=== PATIENT | male | born 1980 | race Caucasian/White ===

== ENCOUNTER 2018-01-18 11:48 | Observation (INO) | payer OTHER ==
[2018-01-18 12:40] VITALS: BMI 22.7
--- NOTE | 2018-01-18 12:57 | PDOC ---
Attending Attestation - Resident Resident Name: Lucius Holliday - ED Attending Attestation I have performed the following: I have examined & evaluated the patient, The case was reviewed & discussed with the resident, I agree w/resident's findings & plan, Exceptions are as noted - HPI HPI: 01/18/18 14:39 THis is a 37 yo RHD M who presents to the ER after attempting to catch a falling box of knives causing a laceration to his right middle finger. The laceration crosses the middle phalanx over the PIP joint. (+) pain (+) limited range of motion - Physicial Exam PE: 01/18/18 12:57 GENERAL: The patient is in no acute distress. LUNGS: Breath sounds equal, clear to auscultation bilaterally. No wheezes, and no crackles. HEART:Regular rate and rhythm, normal S1 and S2 without murmur, rub or gallop. ABDOMEN: Soft, nontender EXTREMITIES: Normal range of motion, no edema. No clubbing or cyanosis. No erythema, or tenderness. NEUROLOGICAL: Cranial nerves II through XII grossly intact. Normal speech. No focal neurological deficits. MUSCULOSKELETAL: Back non-tender to palpation, no CVA tenderness SKIN: laceration right 01/18/18 14:40 - Medical Decision Making 01/18/18 14:50 Patient seen in emergency department by hand consultants Dr. Hanks. Patient be taken to the operating room. Flexor tendon injury
--- NOTE | 2018-01-18 13:47 | PDOC ---
History of Present Illness - General Chief Complaint: Injury Stated Complaint: INJURY TO FINGER (WORK RELATED) Time Seen by Provider: 01/18/18 12:53 History Source: Patient Exam Limitations: No Limitations - History of Present Illness Initial Comments: 01/18/18 14:09 37m with pmh of Brugada syndrome with pacemaker, presents to the ED after attempting to break the fall of a box of knives causing a laceration to his right middle finger. The laceration crosses the middle phalanx over the PIP joint. Says that there was a lot of blood squirting from the wound before he applied pressure. Patient was seen in This ED previously under the name Ignacio Cortés, [id number] 01/18/18 15:34 Past History - Past Medical History Allergies/Adverse Reactions: Allergies Allergy/AdvReac Type Severity Reaction Status Date / Time No Known Allergies Allergy Verified 01/18/18 14:25 COPD: No - Immunization History Immunization Up to Date: No - Suicide/Smoking/Psychosocial Hx Smoking History: Current every day smoker Number of Cigarettes Smoked Daily: 4 Information on smoking cessation initiated: No Hx Alcohol Use: No Drug/Substance Use Hx: No Review of Systems - Review of Systems Able to Perform ROS?: Yes Is the patient limited Stateless proficient: No Constitutional: No: Symptoms Reported HEENTM: No: Symptoms Reported Respiratory: No: Symptoms reported Cardiac (ROS): No: Symptoms Reported ABD/GI: No: Symptoms Reported : No: Symptoms Reported Musculoskeletal: No: Symptoms Reported Integumentary: Yes: Other (3cm laceration to right 3rd finger ) Neurological: Yes: Other (Paatient unable to flex the DIP and PIP joint, just the MCP. Decreased sensation. No bleed.) *Physical Exam - Vital Signs Last Vital Signs Temp Pulse Resp BP Pulse Ox 98.2 F 60 18 117/73 100 01/18/18 12:37 01/18/18 12:37 01/18/18 12:37 01/18/18 12:37 01/18/18 12:37 ED Treatment Course - LABORATORY CBC & Chemistry Diagram: 01/18/18 14:30 01/18/18 14:30 - RADIOLOGY Radiology Studies Ordered: Category Date Time Status FINGER(S) RIGHT [RAD] Stat Radiology 01/18/18 12:56 Completed Medical Decision Making - Medical Decision Making 01/18/18 14:[address] Rosas who will operate on the patient. All pre-surgical labs ordered. Consulted with dr. Gonsalez with cardiology 01/18/18 15:36 Spoke with [employer] off premise service representative Juan Manuel Menchaca ([phone]) who advised just using a magnet to turn off the device for the surgery. *DC/Admit/Observation/Transfer Diagnosis at time of Disposition: Laceration of right middle finger - Discharge Dispostion Decision to Admit order: Yes - Referrals - Patient Instructions - Post Discharge Activity
[2018-01-18] MEDS ORDERED: AMPICILLIN NA/SULBACTAM NA 3 GM in SODIUM CHLORIDE 100 ML IVPB ONE (14:20)
[2018-01-18 14:41] LABS: BASO % 0.6 % (0-2.0); EOS % 0.2 % (0-4.5); HEMATOCRIT 41.3 % (35.4-49); HEMOGLOBIN 13.9 GM/dL (11.7-16.9); LYMPH % 14.5 % (8-40); MCH 32.2 pg (25.7-33.7); MCHC 33.5 g/dl (32.0-35.9); MEAN CELL VOLUME 95.9 fl (80-96); MEAN PLT VOLUME 7.1 fl (7.5-11.1); MONO % 3.4 % (3.8-10.2); NEUT % 81.3 % (42.8-82.8); PLATELET COUNT 281 K/MM3 (134-434); RBC 4.31 M/mm3 (4.00-5.60); RDW 13.2 % (11.9-15.9); WHITE BLOOD COUNT 8.3 K/mm3 (4.0-10.0)
[2018-01-18 14:54] LABS: ALBUMIN 3.8 g/dl (3.4-5.0); ANION GAP 9 (8-16); BLOOD UREA NITROGEN 13 mg/dL (7-18); CALCIUM 8.7 mg/dL (8.5-10.1); CHLORIDE 108 mmol/L (98-107); CO2 26 mmol/L (21-32); GLUCOSE,RANDOM 92 mg/dL (74-106); POTASSIUM 4.3 mmol/L (3.5-5.1); SODIUM 143 mmol/L (136-145)
[2018-01-18 14:58] LABS: ALK PHOS 46 U/L (45-117); BILIRUBIN,TOTAL 0.4 mg/dL (0.2-1.0); CREATININE 0.7 mg/dL (0.7-1.3); SGOT/AST 13 U/L (15-37); SGPT/ALT 15 U/L (12-78); TOT PROT 6.7 g/dl (6.4-8.2)
--- NOTE | 2018-01-18 14:59 | CON.CARD ---
Consult Consult Specialty:: Cardiology Referred by:: ER Reason for Consultation:: Preop, h/o icd for inducible VT and and family h/o brugada - History of Present Illness Chief Complaint: admitted with finger laceration History of Present Illness: PLEASE NOTE, This patient has been admitted here and [facility], multiple times as recent as 10/2017 under the name Frankie Cortés. The charts should be merged. 37 year old man with a family history of father who has Brugada syndrome and an ICD, admitted to [facility] 2013 after a syncopal episode that occurred while smoking K2, no brugada was seen on procainamide challenge but EP study showed inducible monomorphic VT thus he underwent an ICD implantation (Medtronic) at that time. He has not followed with a health administration teacher as an outpatient and He has not had his ICD regularly checked, does not know the last time it was checked. He is now here with a finger laceration that occurred at work and will require surgery. He was seen and [facility] in [facility]. He denies any ICD shocks, he denies any other episodes of syncope after the episode in 2013. Occasional brief palpitations. no sob, pnd, orthopnea, or LE edema. - History Source History Provided By: Patient, Medical Record Limitations to Obtaining History: Poor Historian - Past Medical History Cardio/Vascular: Yes: Other (inducible VT s/p ICD, family history brugada) - Past Surgical History Past Surgical History: Yes: AICD - Alcohol/Substance Use Hx Alcohol Use: No - Smoking History Smoking history: Current every day smoker Aproximately how many cigarettes per day: 4 - Social History ADL: Independent History of Recent Travel: No Home Medications - Allergies Allergies/Adverse Reactions: Allergies Allergy/AdvReac Type Severity Reaction Status Date / Time No Known Allergies Allergy Verified 01/18/18 14:25 Family Disease History - Family Disease History Family Disease History: Heart Disease: Father (brugada s/p ICD) Review of Systems - Review of Systems Constitutional: denies: No Symptoms, Chills, Diaphoresis, Fever, Lethargy, Loss of Appetite, Malaise, Night Sweats, Unintentional Wgt. Loss, Weakness, Other Eyes: denies: No Symptoms, Blind Spots, Blurred Vision, Double Vision, Eye Pain , Floaters, Photophobia, Recent Change in Vision, Other HENT: denies: No Symptoms, Difficult Swallowing, Ear Discharge, Ear Pain, Epistaxis, Gingival Bleeding, Hearing Loss, Mouth Swelling, Nasal Congestion, Ocular Prosthesis, Throat Pain, Toothache, Ringing in Ears, Other Neck: denies: No Symptoms, Decreased ROM, Lumps, Pain on Movement, Stiffness, Swollen Glands, Tenderness, Other Cardiovascular: denies: No Symptoms, Chest Pain, Edema, Palpitations, Shortness of Breath, Other Respiratory: denies: No Symptoms, Cough, Exercise Intolerance, Hemoptysis, Orthopnea, PND, Snoring, SOB, SOB on Exertion, Wheezing, Other Gastrointestinal: denies: No Symptoms, Abdominal Pain, Bloating, Constipation, Diarrhea, Dysphagia, Indigestion, Melena, Nausea, Rectal Bleeding, Vomiting, Vomiting Blood, Other Genitourinary: denies: No Symptoms, Burning, Discharge, Dysuria, Flank Pain, Frequency, Hematuria, Incontinence, Lesions, Menses, Pain, Testicular Mass, Testicular Pain, Testicular Swelling, Urgency, Vaginal Bleeding, Other Breasts: denies: No Symptoms Reported, See HPI, Breast Implants, Discharge from Nipple, Lumps, Pain, Skin Changes, Other Musculoskeletal: reports: Extremity Pain, Joint Swelling, Other (finger laceration and pain). denies: No Symptoms, Back Pain, Crepitus, Decreased ROM, Joint Pain, Muscle Pain, Muscle Cramps, Muscle Weakness Integumentary: reports: Wound. denies: No Symptoms, Blister, Bruising, Change in Color, Eczema, Erythema, Incision, Lesions, Lump, Pallor, Pruritis, Rash, Other Neurological: denies: No Symptoms, Change in LOC, Change in Speech, Confusion, Dizziness, Headache, Incoordination, Numbness, Parasthesia, Pre-Existing Deficit , Seizure, Syncope, Tremors, Unsteady Gait, Weakness, Other Endocrine: denies: No Symptoms, Excessive Sweating, Flushing, Increased Hunger, Increased Thirst, Intolerance to Cold, Intolerance to Heat, Unexplained Weight Gain, Unexplained Weight Loss, Other Hematology/Lymphatic: denies: No Symptoms, Easily Bruised, Excessive Bleeding, Swollen Glands, Other Psychiatric: denies: No Symptoms, Altered Sleep Pattern, Anxiety, Depression, Hallucinations, Panic, Paranoia, Suicidal, Other Vital Signs: Vital Signs Temperature 98.2 F 01/18/18 12:37 Pulse Rate 60 01/18/18 12:37 Respiratory Rate 18 01/18/18 12:37 Blood Pressure 117/73 01/18/18 12:37 O2 Sat by Pulse Oximetry (%) 100 01/18/18 12:37 Constitutional: Yes: No Distress, Calm, Thin Eyes: Yes: WNL, Conjunctiva Clear, EOM Intact, PERRL HENT: Yes: WNL, Atraumatic, Normocephalic Neck: Yes: WNL, Supple, Trachea Midline Respiratory: Yes: WNL, Regular, CTA Bilaterally. No: Rales, Rhonchi, Wheezes Gastrointestinal: Yes: WNL, Normal Bowel Sounds, Soft. No: Distention, Tenderness Renal/: Yes: WNL Cardiovascular: Yes: WNL, Regular Rate and Rhythm. No: Bradycardia, Tachycardia , Pulse Irregular, Gallop, Rub, Varicosities JVD: No Carotid Bruit: No PMI: Non-Displaced Heart Sounds: Yes: S1, S2. No: Split S2, S3, S4, Clicks, Gallop, Rub, Bruit Murmur: No: Systolic Murmur, Diastolic Murmur Musculoskeletal: Yes: WNL Extremities: Yes: Other (R hand finger laceration) Edema: No Peripheral Pulses WNL: Yes Peripheral Pulses: 2+ Left Doralis Pedis, 2+ Right Dorsalis Pedis Integumentary: Yes: WNL Neurological: Yes: WNL, Alert, Oriented, Cran Nerves II-XII Intact ...Motor Strength: WNL Psychiatric: Yes: WNL, Alert, Oriented - Other Data Labs, Other Data: CBC, BMP 01/18/18 14:30 01/18/18 14:30 not yet done Prior Cardiac Procedures: Other (ICD for inducible VT [facility] 2013) Ejection Fraction %: LVEF > or = 40 % Imaging - Results EKG: Pending Other: Report Reviewed, Image Reviewed Assessment/Plan PLEASE NOTE, This patient has been admitted here and [facility], multiple times as recent as 10/2017 under the name Frankie Cortés. The charts should be merged. 37 year old man with a family history of father who has Brugada syndrome and an ICD, admitted to [facility] 2013 after a syncopal episode that occurred while smoking K2, no brugada was seen on procainamide challenge but EP study showed inducible monomorphic VT thus he underwent an ICD implantation (Medtronic) at that time. He has not followed with a health administration teacher as an outpatient and He has not had his ICD regularly checked, does not know the last time it was checked. He is now here with a finger laceration that occurred at work and will require surgery. He was seen and examined in [place]. He denies any ICD shocks, he denies any other episodes of syncope after the episode in 2013. Occasional brief palpitations. no sob, pnd, orthopnea, or LE edema. Cardiology preop for finger laceration surgery -there are no cardiac contraindications to surgery -the 2 issues are that use of bovie could potentially cause artifact and misinterpretation by ICD leading to a shock -please have Medtronic available to turn off shock function of ICD prior to procedure and have external defibrillator pads on patient and on standby, then return ICD to normal function post procedure -if pt does have brugada syndrome the stress of anesthesia and surgery although unlikely could stimulate and arrhythmia and thus should have the external pads available, while unlikely it would be even less likely if local/regional anesthesia could be used for the procedure, at the discretion of surgery and anesthesia -otherwise there are no contraindications to the procedure and would recommend routine postoperative monitoring Advised pt that he needs to adhere to outpatient follow up and needs to have his ICD routinely monitored for proper function and battery life. No other inpatient cardiac work up needed at this time.
[2018-01-18 15:13] LABS: INR 1.01 (0.83-1.09); PROTHROMBIN TIME (PATIENT) 11.4 SEC (9.7-13.0)
[2018-01-18 15:15] LABS: ACTIVATED PTT 26.7 SECONDS (25.2-36.5)
--- NOTE | 2018-01-18 15:39 | CONSULT ---
Consult Consult Specialty:: Hand and Microsurgery Referred by:: Mg RUCKER - ED Reason for Consultation:: Lacertion with flexor tendon dominnat hand - History of Present Illness Chief Complaint: Right hand middle finger lacertion History of Present Illness: 37 yo RHD male PMH Brugadda s/p ICD, presented with a knife laceration of the right middle finger sustained at work. He was trying to catch a box of knives that was falling. 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 The laceration crosses the middle phalanx over the PIP joint. He noted pulsatile bleeding at the scene and and he applied pressure with a rubber jarrett tourniquet NPO since 8 this morning. - History Source History Provided By: Patient, Medical Record Limitations to Obtaining History: No Limitations - Past Medical History Cardio/Vascular: Yes: Other (inducible VT s/p ICD, family history brugada) - Past Surgical History Past Surgical History: Yes: AICD - Alcohol/Substance Use Hx Alcohol Use: No - Smoking History Smoking history: Current every day smoker Aproximately how many cigarettes per day: 4 - Social History ADL: Independent History of Recent Travel: No Home Medications - Allergies Allergies/Adverse Reactions: Allergies Allergy/AdvReac Type Severity Reaction Status Date / Time No Known Allergies Allergy Verified 01/18/18 14:25 Family Disease History - Family Disease History Family Disease History: Heart Disease: Father (brugada s/p ICD) Review of Systems - Review of Systems Constitutional: denies: Chills, Fever, Night Sweats Eyes: denies: Blind Spots, Recent Change in Vision HENT: denies: Difficult Swallowing, Throat Pain Neck: denies: Decreased ROM, Tenderness Cardiovascular: reports: Other (bradycardia syndrome) Respiratory: denies: Cough, SOB Gastrointestinal: denies: Abdominal Pain, Constipation, Diarrhea Genitourinary: denies: Discharge, Dysuria Breasts: reports: No Symptoms Reported. denies: Pain Musculoskeletal: reports: Extremity Pain (right hand). denies: Joint Swelling, Muscle Weakness Integumentary: denies: No Symptoms, Blister, Change in Color Neurological: denies: Seizure, Syncope Endocrine: denies: Unexplained Weight Gain, Unexplained Weight Loss Hematology/Lymphatic: denies: Easily Bruised, Excessive Bleeding Psychiatric: denies: Anxiety, Depression Physical Exam Vital Signs: Vital Signs Temperature 98.2 F 01/18/18 12:37 Pulse Rate 60 08/08/18 12:37 Respiratory Rate 18 01/18/18 12:37 Blood Pressure 117/73 01/18/18 12:37 O2 Sat by Pulse Oximetry (%) 100 01/18/18 12:37 Constitutional: Yes: Well Nourished, No Distress, Calm, Thin Eyes: Yes: Conjunctiva Clear, EOM Intact HENT: Yes: Atraumatic, Normocephalic Neck: Yes: Supple, Trachea Midline Cardiovascular: Yes: Regular Rate and Rhythm, S1, S2, Other (left chest prominent buldge subcutaneously) Respiratory: Yes: Regular, CTA Bilaterally Gastrointestinal: Yes: Normal Bowel Sounds, Soft. No: Tenderness ...Rectal Exam: Yes: Deferred Renal/: No: CVA Tenderness - Left, CVA Tenderness - Right Musculoskeletal: No: Back Pain, Joint Stiffness Extremities: No: Cool, Cyanosis Edema: No Peripheral Pulses WNL: Yes Integumentary: Yes: Tattoos. No: Erythema, Jaundice Wound/Incision: Yes: Clean/Dry, Bleeding, Unapproximated (Zone 2 volar laceration of right middle finger 2.5cm oblique, diminished 2PD radial border. cap refill <2 seconds). No: Draining, Reddened Neurological: Yes: Alert, Oriented Psychiatric: Yes: Alert, Oriented Labs: CBC, BMP 01/18/18 14:30 01/18/18 14:30 Imaging - Results X-ray: Report Reviewed, Image Reviewed Problem List - Problems (1) Laceration of flexor structure of right middle finger at hand level Assessment/Plan: 37yo RHD male with Right middle finger laceration sustained at work NPO and IVF hydration IV antibiotics Discussed with patient risks, benefits and alternatives of Exploration right middle finger, repair of flexor tendon, digital nerve and vessel including but not limited to bleeding, infection, injury to adjacent structures, loss of function, amputation, need for further procedures; alternatives include antibiotics, delayed or no surgery - risks of this include failure of nonoperative therapy, loss of function, amputation, recurrence. Patient desires to proceed with operation - will take to OR for above. Informed consent signed for same. Thank you for the opportunity to participate in the care of this patient. Code(s): S66.122A - LACERAT FLEXOR MUSC/FASC/TEND R MID FNGR AT WRS/HND LV, INIT (2) Laceration of right middle finger Code(s): S61.212A - LACERATION W/O FB OF R MID FINGER W/O DAMAGE TO NAIL, INIT Qualifiers: Encounter type: initial encounter Damage to nail status: without damage Foreign body presence: unspecified Qualified Code(s): S61.212A - Laceration without foreign body of right middle finger without damage to nail, initial encounter (3) Laceration of digital nerve of finger Code(s): S64.40XA - INJURY OF DIGITAL NERVE OF UNSPECIFIED FINGER, INIT ENCNTR Qualifiers: Encounter type: initial encounter Qualified Code(s): S64.40XA - Injury of digital nerve of unspecified finger, initial encounter (4) Laceration of digital artery Code(s): S65.519A - LACERATION OF BLOOD VESSEL OF UNSP FINGER, INIT ENCNTR Qualifiers: Encounter type: initial encounter Qualified Code(s): S65.519A - Laceration of blood vessel of unspecified finger, initial encounter
--- NOTE | 2018-01-18 17:21 | HP ---
Admitting History and Physical - Primary Care Physician PCP: Felicity Loya - Admission History of Present Illness: 37 yo RHD male PMH Brugadda s/p ICD, presented with a knife laceration of the right middle finger sustained at work. He was trying to catch a box of knives that was falling. 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 He noted pulsatile bleeding at the scene and and he applied pressure with a rubber jarrett tourniquet NPO since 8 this morning. - Past Medical History Cardiovascular: Yes: Other (inducible VT s/p ICD, family history brugada) - Past Surgical History Past Surgical History: Yes: AICD - Smoking History Smoking history: Current every day smoker Aproximately how many cigarettes per day: 4 - Alcohol/Substance Use Hx Alcohol Use: No - Social History ADL: Independent History of Recent Travel: No Home Medications - Allergies Allergies/Adverse Reactions: Allergies Allergy/AdvReac Type Severity Reaction Status Date / Time No Known Allergies Allergy Verified 01/18/18 14:25 - Home Medications Home Medications: Ambulatory Orders Amoxicillin/Potassium Clav [Augmentin 875-125 Tablet] 1 each PO BID #14 tablet 01/18/18 Family Disease History - Family Disease History Family Disease History: Heart Disease: Father (brugada s/p ICD) Physical Examination Vital Signs: Vital Signs Temperature 98.2 F 01/18/18 12:37 Pulse Rate 60 01/18/18 12:37 Respiratory Rate 18 01/18/18 12:37 Blood Pressure 117/73 01/18/18 12:37 O2 Sat by Pulse Oximetry (%) 100 01/18/18 12:37 Constitutional: Yes: No Distress HENT: Yes: Atraumatic Neck: Yes: Supple Cardiovascular: Yes: Regular Rate and Rhythm Respiratory: Yes: CTA Bilaterally Gastrointestinal: Yes: Normal Bowel Sounds Extremities: Yes: Other (R middle finger laceration) Peripheral Pulses WNL: Yes Neurological: Yes: Alert, Oriented Labs: CBC, BMP 01/18/18 14:30 01/18/18 14:30 Problem List - Problems (1) Laceration of digital artery Code(s): S65.519A - LACERATION OF BLOOD VESSEL OF UNSP FINGER, INIT ENCNTR Qualifiers: Encounter type: initial encounter Qualified Code(s): S65.519A - Laceration of blood vessel of unspecified finger, initial encounter (2) Laceration of digital nerve of finger Code(s): S64.40XA - INJURY OF DIGITAL NERVE OF UNSPECIFIED FINGER, INIT ENCNTR Qualifiers: Encounter type: initial encounter Qualified Code(s): S64.40XA - Injury of digital nerve of unspecified finger, initial encounter (3) Laceration of flexor structure of right middle finger at hand level Code(s): S66.122A - LACERAT FLEXOR MUSC/FASC/TEND R MID FNGR AT WRS/HND LV, INIT (4) Laceration of right middle finger Assessment/Plan: dr nguyen surgeon on board and will take pt to OR Code(s): S61.212A - LACERATION W/O FB OF R MID FINGER W/O DAMAGE TO NAIL, INIT Qualifiers: Encounter type: initial encounter Damage to nail status: without damage Foreign body presence: unspecified Qualified Code(s): S61.212A - Laceration without foreign body of right middle finger without damage to nail, initial encounter Assessment/Plan Laboratory Tests 01/18/18 01/18/18 01/18/18 14:28 14:30 14:30 WBC 8.3 RBC 4.31 Hgb 13.9 Hct 41.3 MCV 95.9 MCH 32.2 MCHC 33.5 RDW 13.2 Plt Count 281 MPV 7.1 L Absolute Neuts (auto) 6.7 Neutrophils % 81.3 Lymphocytes % 14.5 Monocytes % 3.4 L Eosinophils % 0.2 Basophils % 0.6 Nucleated RBC % 0 PT with INR 11.40 INR 1.01 PTT (Actin FS) 26.7 Sodium Potassium Chloride Carbon Dioxide Anion Gap BUN Creatinine Creat Clearance w eGFR Random Glucose Calcium Total Bilirubin AST ALT Alkaline Phosphatase Total Protein Albumin Blood Type A POSITIVE Antibody Screen Negative 01/18/18 14:30 WBC RBC Hgb Hct MCV MCH MCHC RDW Plt Count MPV Absolute Neuts (auto) Neutrophils % Lymphocytes % Monocytes % Eosinophils % Basophils % Nucleated RBC % PT with INR INR PTT (Actin FS) Sodium 143 Potassium 4.3 Chloride 108 H Carbon Dioxide 26 Anion Gap 9 BUN 13 Creatinine 0.7 Creat Clearance w eGFR > 60 Random Glucose 92 Calcium 8.7 Total Bilirubin 0.4 AST 13 L ALT 15 Alkaline Phosphatase 46 Total Protein 6.7 Albumin 3.8 Blood Type Antibody Screen Active Medications Generic Name Dose Route Start Last Admin Trade Name Freq PRN Reason Stop Dose Admin Clindamycin Phosphate 300 mg in 50 mls @ 100 mls/hr 01/18/18 21:00 01/18/18 21:29 Cleocin 300 Mg Premix Ivpb IVPB 100 mls/hr Q6H-IV TEMITOPE Administration Protocol Piperacillin Sod/Tazobactam 50 mls @ 100 mls/hr 01/19/18 02:00 Sod 3.375 gm/ Dextrose IVPB Q8H-IV TEMITOPE Protocol
[2018-01-18] MEDS ORDERED: PROMETHAZINE HCL 25 MG/1 ML VIAL IVPUSH PRN (18:40)
[2018-01-18] MEDS ORDERED: ONDANSETRON 4 MG/2 ML VIAL IVPUSH PRN (18:40)
[2018-01-18] MEDS ORDERED: MIDAZOLAM HCL 2 MG/2 ML SINGLE DOSE VIAL ONE (18:49)
[2018-01-18] MEDS ORDERED: PROPOFOL 20 ML ONE (18:49)
[2018-01-18] MEDS ORDERED: LIDOCAINE HCL/PF 2% SDV 5ML VIAL ONE (18:50)
[2018-01-18] MEDS ORDERED: GLYCOPYRROLATE 0.2 MG/1 ML VIAL ONE (18:50)
[2018-01-18] MEDS ORDERED: LACTATED RINGERS SOLUTION 1,000 ML IV SCH (19:00)
[2018-01-18] MEDS ORDERED: DEXAMETHASONE SOD PHOSPHATE 4 MG/1 ML VIAL ONE (19:11)
[2018-01-18] MEDS ORDERED: BUPIVACAINE HCL/PF 0.5% (5MG/ML) 10 ML VIAL ONE (19:11)
[2018-01-18] MEDS ORDERED: BUPIVACAINE HCL/PF (5 MG/ML) 30 ML VIAL IJ ONE (19:21)
--- NOTE | 2018-01-18 19:52 | OP ---
Operative Note - Note: Operative Date: 01/18/18 Pre-Operative Diagnosis: Laceration of right middle finger, laceration radial digital artery and nerve Operation: Exploration of laceration right middle finger, repair of radial digital artery and nerve Findings: zone 2 radial digital nerve and artery 100% lacerations, repaired primarily TT 27min and TP 250mmHG Post-Operative Diagnosis: Same as Pre-op Surgeon: Merrill Rosas Anesthesiologist/YACHT HAND: Naresh Bautista Anesthesia: General, Local (0.5% marcaine) Specimens Removed: none Estimated Blood Loss (mls): 2 Fluid Volume Replaced (mls): 500 Operative Report Dictated: Yes
[2018-01-18] MEDS ORDERED: CLINDAMYCIN 300 MG PREMIX IVPB 300 MG/50 ML BAG IVPB SCH ×2 (21:00)
[2018-01-18 21:43] VITALS: TEMP 98.6
--- NOTE | 2018-01-18 23:15 | OP ---
DATE OF OPERATION: 01/18/2018 PREOPERATIVE DIAGNOSIS: Right middle finger laceration. POSTOPERATIVE DIAGNOSIS: Right middle finger laceration. PROCEDURE: Exploration, right middle finger. Primary repair of radial digital nerve and radial digital artery primarily. ESTIMATED BLOOD LOSS: 2 mL TOURNIQUET PRESSURE: 250 mmHg TOURNIQUET TIME: 27 minutes ATTENDING SURGEON: Merrill Rosas M.D. LOCAL TRUCK DRIVER: Naresh Bautista M.D. ANESTHESIA: General with local. Local consisted of 0.5% Marcaine digital block fashion. SPECIMENS: No specimens. BRIEF FINDINGS: Patient had a zone 2 radial digital nerve laceration 100% and radial digital artery laceration 100% primarily repaired under microscopic guidance. complex appeared to be intact except for partial laceration of the flexor pollicis. BRIEF PROCEDURE: Patient is brought to the operating room, placed in the supine position on the operating table. The right arm extended at 90 degrees perpendicular body to midline axis. The right hand was prepped and draped in the standard surgical field. Patient had lower extremity SCDs placed. Patient had received intravenous Unasyn prior to surgery. He was induced under general anesthesia, LMA was placed, at which point we turned to the operative site. A formal timeout was completed, identifying the operative site digit. We began first with a Nilson type incision scribed over the volar aspect of the right middle finger. It was opened with a 15 blade scalpel, deepened and widened through subcutaneous tissue. This was after the arm was exsanguinated and the tourniquet was inflated to a pressure of 250 mmHg. After opening the bruised incision, we proceeded with developing flaps just in the zone 2, incorporating the initial laceration. Care was taken to dissect down without injury to adjacent neurovascular structures. The ulnar digital nerve and artery appeared to be intact, flanked by the ulnar vein and the radial digital artery and nerve appeared to be lacerated in zone 2. The ends were cleaned and approximated for the nerve, a perineural repair with 6-0 Prolene was conducted circumferentially aligning the fascia after aligning the nerve fascicles under 4 power magnification. We then proceeded with repair of the radial digital artery which appeared superficial to that structure. The end was cut, it was flushed, and there appeared to be no clot present, must have been washed out during the preparation. It was repaired circumferentially in similar fashion with 7-0 Prolene. Care was taken then to release tourniquet. Heparin was administered. Patient then had the flexor tendon sheath evaluated. There appeared to be a superficial laceration of the anular robert, this was divided to inspect the extensor tendon, also using a Nilson incision on the anular robert. Once open, it appears that there was only a small scratch in the flexor digitorum profundus tendon, as it inserted onto the distal phalanx. Care was taken to irrigate the site, did not require additional repair. We proceeded then with closure of the Nilson flaps with 4-0 nylon interrupted fashion along the length of the incision. Patient was awoken from general anesthesia, having tolerated procedure well after patient was cleaned, dressed, and splinted in a position of safety. He was given instructions for followup in a period of 2 weeks. MD PERICO Mcnamara/[id number]
[2018-01-19 00:23] VITALS: BP 130/76; PULSE 79
[2018-01-19] MEDS ORDERED: PIPERACILLIN/TAZOB 3.375 GM 3.375 GM in DEXTROSE 5%-WATER - 50 ML IVPB SCH (02:00)
--- NOTE | 2018-01-19 16:49 | EKG ---
Test Reason : Blood Pressure : / mmHG Vent. Rate : 044 BPM Atrial Rate : 044 BPM P-R Int : 182 ms QRS Dur : 100 ms QT Int : 484 ms P-R-T Axes : 043 064 043 degrees QTc Int : 413 ms MARKED SINUS BRADYCARDIA WITH SINUS ARRHYTHMIA ABNORMAL ECG NO PREVIOUS ECGS AVAILABLE Confirmed by ADRIANA MCDONALD MD ([id number]) on 01/19/2018 3:49:23 PM Referred By: Confirmed By:ADRIANA MCDONALD MD
--- NOTE | 2018-01-19 17:16 | DS ---
Physical Examination Vital Signs: Vital Signs Temperature 98.6 F 01/18/18 22:45 Pulse Rate 79 01/18/18 22:45 Respiratory Rate 20 01/18/18 22:45 Blood Pressure 130/76 01/18/18 22:45 O2 Sat by Pulse Oximetry (%) 99 01/18/18 22:45 Labs: CBC, BMP 01/18/18 14:30 01/18/18 14:30 Discharge Summary Reason For Visit: LACERATION OF RIGHT MIDDLE FINGER Condition: Improved - Instructions Diet, Activity, Other Instructions: Postoperative instructions: You had a Repair of flexor tendon right middle finger on 01/18/[address] Merrill Rosas of [facility]. Activity: Resume your usual activities gradually, but no heavy exertion or lifting more than 10-15 pounds for 4-6 weeks. Please keep splint in place clean and dry until first followup appointment. Eat lightly at first, but advance to your usual diet as tolerated. Pain: For pain, you may use and alternate Tylenol (acetaminophen) and/or ibuprofen every 6 hours each as needed; this means that you can take one OR the other at 3-hour intervals. If you are prescribed a Tylenol/narcotic combination for severe pain, use it instead of plain Tylenol as needed and switch back when your pain starts decreasing. Do not take more than 4000mg of acetaminophen in a day. Take medications as prescribed or indicated on the labeling. Follow-up: Call Dr. Rosas' office at [phone] to make your postop appointment (Tuesday 2 weeks after surgery as advised). Clinic is held in the [facility] on the first floor of [facility]. Call the office if you have: * increasing pain not responsive to pain medication * fever of 101F or higher * unusual or increasing bleeding or drainage from wounds * increasing redness or swelling at wound sites Also, see your primary medical doctor within 1-2 weeks. Referrals: Merrill Rosas MD [Staff Physician] - Disposition: HOME - Home Medications Comprehensive Discharge Medication List: Ambulatory Orders Amoxicillin/Potassium Clav [Augmentin 875-125 Tablet] 1 each PO BID #14 tablet 01/18/18 mt
== END 2018-01-18 22:30 | disposition home or self-care (01) ==
LOC: JER 11:48 → UNDOADMOB 15:28 → JERBED 15:28 → INTOOBSV 15:28 → JERBED 17:23 → J6S 17:55
PROVIDERS: ADMIT Internal Medicine; ATTEND Internal Medicine
PROC: 01Q60ZZ Repair Radial Nerve, Open Approach (ICD-10-PCS; 2018-01-18)
PROC: 3E03329 Introduction of Other Anti-infective into Peripheral Vein, Percutaneous Approach (ICD-10-PCS; 2018-01-18)
PROC: 03QB0ZZ Repair Right Radial Artery, Open Approach (ICD-10-PCS; principal; 2018-01-18 15:00)
DX: S66.122A Laceration of flexor muscle, fascia and tendon of right middle finger at wrist and hand level, initial encounter (principal); S61.212A Laceration without foreign body of right middle finger without damage to nail, initial encounter; S64.492A Injury of digital nerve of right middle finger, initial encounter; S65.512A Laceration of blood vessel of right middle finger, initial encounter; I49.8 Other specified cardiac arrhythmias; F17.210 Nicotine dependence, cigarettes, uncomplicated; Z95.810 Presence of automatic (implantable) cardiac defibrillator; W26.0XXA Contact with knife, initial encounter; Y93.89 Activity, other specified; Y92.89 Other specified places as the place of occurrence of the external cause; Y99.0 Civilian activity done for income or pay
CPT/HCPCS: 36415; 73140-TC-RT-FY; 80053; 85025; 85610; 85730; 86850; 86900; 86901; 93005; 93010; 99283-25; G0378

== ENCOUNTER 2021-03-21 12:57 | Emergency (ER) | payer OTHER ==
[2021-03-21 13:18] VITALS: BP 129/82; PULSE 91; BMI 25.8
[2021-03-21 13:26] VITALS: TEMP 97.9
[2021-03-21] MEDS ORDERED: KETOROLAC TROMETHAMINE 60 MG/2 ML VIAL IM ONE (14:32)
[2021-03-21] MEDS ORDERED: KETOROLAC TROMETHAMINE 60 MG/2 ML VIAL ONE (14:37)
[2021-03-21 15:01] LABS: BASO % 0.8 % (0-2.0); EOS % 1.9 % (0-4.5); HEMATOCRIT 45.7 % (35.4-49); HEMOGLOBIN 15.8 GM/dL (11.7-16.9); LYMPH % 31.4 % (8-40); MCH 32.9 pg (25.7-33.7); MCHC 34.5 g/dl (32.0-35.9); MEAN CELL VOLUME 95.5 fl (80-96); MEAN PLT VOLUME 6.9 fl (7.5-11.1); MONO % 5.1 % (3.8-10.2); NEUT % 60.8 % (42.8-82.8); PLATELET COUNT 307 10^3/uL (134-434); RBC 4.79 M/mm3 (4.00-5.60); WHITE BLOOD COUNT 7.2 K/mm3 (4.0-10.0)
[2021-03-21 15:09] LABS: EPI CELLS 3 /uL (0-25.1); HYALINE CASTS 0 /uL (0-3.1); URINE APPEARANCE TURBID; URINE BACTERIA 5 /uL (0-1359); URINE BILIRUBIN NEGATIVE (NEGATIVE); URINE COLOR YELLOW; URINE GLUCOSE (UA) NEGATIVE (NEGATIVE); URINE KETONE NEGATIVE (NEGATIVE); URINE LEUK ESTERASE TRACE (NEGATIVE); URINE NITRITE NEGATIVE (NEGATIVE); URINE PROTEIN NEGATIVE (NEGATIVE); URINE RBC 26 /uL (0-23.9); URINE WBC 4 /uL (0-25.8)
[2021-03-21 15:25] LABS: ALBUMIN 3.7 g/dl (3.4-5.0); BLOOD UREA NITROGEN 13.7 mg/dL (7-18); CALCIUM 8.9 mg/dL (8.5-10.1)
[2021-03-21 15:29] LABS: CREATININE 0.9 mg/dL (0.55-1.3)
[2021-03-21 15:30] LABS: BILIRUBIN,TOTAL 0.3 mg/dL (0.2-1); TOT PROT 7.6 g/dl (6.4-8.2)
[2021-03-21 16:09] LABS: COCAINE, UR NEGATIVE (NEGATIVE); METHADONE, UR NEGATIVE (NEGATIVE); OPIATES, URI NEGATIVE (NEGATIVE); PHENCYCLIDINE,URINE NEGATIVE (NEGATIVE); URINE AMPHETAMINES NEGATIVE (NEGATIVE); URINE BARBITURATES NEGATIVE (NEGATIVE); URINE BENZODIAZEPINES NEGATIVE (NEGATIVE)
== END 2021-03-21 16:16 | disposition home or self-care (01) ==
LOC: JER 12:57
PROC: 3E0233Z Introduction of Anti-inflammatory into Muscle, Percutaneous Approach (ICD-10-PCS; principal; 2021-03-21)
DX: M54.9 Dorsalgia, unspecified (principal); R07.9 Chest pain, unspecified
CPT/HCPCS: 36415; 80053; 80307; 81003; 85025; 93005; 93010; 99284-25

== ENCOUNTER 2022-03-04 09:01 | Emergency (ER) | payer OTHER ==
[2022-03-04 09:32] VITALS: BP 137/83; PULSE 95; RESP 19; TEMP 98.9; BMI 19.9
== END 2022-03-04 10:37 | disposition home or self-care (01) ==
LOC: JER 09:01
DX: U07.1 COVID-19 (principal); J06.9 Acute upper respiratory infection, unspecified
CPT/HCPCS: 0241U-QW; 99283-25